=== PATIENT | male | born 1965 | race Asian ===

== ENCOUNTER 2021-09-22 11:13 | Emergency (ER) | payer MEDICAID ==
[~2021-09-22] VITALS: Ht 170.2 cm; Wt 70.3 kg
[2021-09-22 11:49] VITALS: BP_SYST 122
--- NOTE | 2021-09-22 11:49 | NUR ---
pPatient to ER bed 7 to gown for evaluation. Side rails up.
--- NOTE | 2021-09-22 11:50 | NUR ---
Pt came into ER with C/O of bump on lower back with pain 8/. Pt is AAOX4 speaking full sentences. Breathing is even and unlabored.
--- NOTE | 2021-09-22 11:50 | NUR ---
ER at bedside examining patient.
[2021-09-22] MEDS ORDERED: LIDOCAINE 1% 10 MG/ML, 20 ML MDV INJ ONE (12:00)
[2021-09-22] MEDS ORDERED: BACITRACIN 1 GM OINT TP ONE (12:00)
[2021-09-22 12:04] VITALS: BP_SYST 122
[2021-09-22] MEDS ORDERED: CLIN300C12 PO (12:22)
[2021-09-22] MEDS ORDERED: IBUP-1971 PO (12:22)
--- NOTE | 2021-09-22 12:24 | NUR ---
Dr. Barboza performed incision and drainage. Incision cleansed with iodine and packed with quarter inch gauze. Incision dressed with bacitracin and sterile gauze and tape. Pt tolerated well.
--- NOTE | 2021-09-22 12:28 | NUR ---
Patient given written and verbal discharge instructions and verbalizes understanding. ER MD discussed with patient the results and treatment provided. Patient in stable condition. ID arm band removed. Rx of motrin and clindamycin given. Patient educated on pain management and to follow up with PMD. Pain Scale 0/10. Opportunity for questions provided and answered. Medication side effect fact sheet provided.
== END 2021-09-22 12:28 | disposition home or self-care (01) ==
LOC: SED 11:13
DX: L72.3 Sebaceous cyst (principal); Z79.899 Other long term (current) drug therapy
CPT/HCPCS: 99283